=== PATIENT | female | born 1960 ===

== ENCOUNTER 2020-06-05 21:33 | Emergency (ER) | payer OTHER ==
[~2020-06-05] VITALS: Ht 162.6 cm; Wt 79.4 kg
[2020-06-05] MEDS ORDERED: SYNTHROID100 MCG (21:46)
[2020-06-06] MEDS ORDERED: TAMS0.4C PO (06:29)
[2020-06-06] MEDS ORDERED: KETO10TA2 PO (06:29)
== END 2020-06-06 06:43 ==
LOC: ER 21:33
DX: N20.1 Calculus of ureter (principal)